=== PATIENT | female | born 1965 | race Caucasian/White ===

== ENCOUNTER 2019-01-27 07:03 | Emergency (ER) | payer BC ==
[2019-01-27 07:13] VITALS: BP 149/73
--- NOTE | 2019-01-27 07:21 | UC ---
Eye Complaint HPI - HPI Summary HPI Summary: 53-year-old woman comes in with a chief complaint of upper eyelid swelling on the right side. Patient woke up this morning with it. The medial aspect of the upper eyelid. It's irritating when she blinks her eyes it's less irritating when she doesn't. No crusting. No known trauma. Does not wear contacts. - History of Current Complaint Chief Complaint: UCEye Stated Complaint: RT EYE CONCERN Time Seen by Provider: 01/27/19 07:15 Pain Intensity: 4 - Allergies/Home Medications Allergies/Adverse Reactions: Allergies Allergy/AdvReac Type Severity Reaction Status Date / Time Penicillins Allergy Anaphylatic Verified 01/27/19 07:10 Shock Sulfa (Sulfonamide Allergy Rash Verified 01/27/19 07:10 Antibiotics) Home Medications: Home Medications Pantoprazole TAB * [Protonix TAB*] 40 mg PO DAILY 01/27/19 [History Confirmed ] Timolol 0.25% OPHTH.SOLN* [Timoptic Ophth.soln 0.25%] 1 drop BOTH EYES DAILY 01/10 [History Confirmed 01/27/19] PMH/Surg Hx/FS Hx/Imm Hx Previously Healthy: Yes GI/ History: Gastroesophageal Reflux - Surgical History Surgical History: Yes Surgery Procedure, Year, and Place: b/l bunionectomy, b/l breast reduction - Family History Known Family History: Positive: Non-Contributory - Social History Alcohol Use: None Substance Use Type: None Smoking Status (MU): Former Smoker When Did the Patient Quit Smoking/Using Tobacco: ~1999 Review of Systems All Other Systems Reviewed And Are Negative: Yes Constitutional: Positive: Negative Skin: Positive: Negative Eyes: Positive: Other - see hpi ENT: Positive: Negative Respiratory: Positive: Negative Cardiovascular: Positive: Negative Gastrointestinal: Positive: Negative Motor: Positive: Negative Neurovascular: Positive: Negative Musculoskeletal: Positive: Negative Neurological: Positive: Negative Psychological: Positive: Negative Is Patient Immunocompromised?: No Physical Exam Triage Information Reviewed: Yes Appearance: Well-Appearing, No Pain Distress, Well-Nourished Vital Signs: Initial Vital Signs Temp 97.7 F 01/27/19 07:08 Pulse 74 01/27/19 07:08 Resp 16 01/27/19 07:08 BP 149/73 01/27/19 07:08 Pulse Ox 97 01/27/19 07:08 Vital Signs Reviewed: Yes Eyes: Positive: Conjunctiva Clear, Other: - rt medial upper eyelid swollen. no fb seen on exam. perrla/eomi. Negative: Conjunctiva Inflamed, Discharge ENT: Negative: Nasal congestion Neck: Positive: Supple Respiratory: Positive: No respiratory distress Musculoskeletal Exam: Normal Musculoskeletal: Positive: Strength Intact, ROM Intact Neurological Exam: Normal Neurological: Positive: Alert, Muscle Tone Normal Psychological Exam: Normal Psychological: Positive: Age Appropriate Behavior Skin Exam: Normal Eye Complaint Course/Dx - Differential Dx/Diagnosis Provider Diagnosis: Hordeolum of right upper eyelid Discharge - Sign-Out/Discharge Documenting (check all that apply): Patient Departure All imaging exams completed and their final reports reviewed: No Studies - Discharge Plan Condition: Stable Disposition: HOME Prescriptions: Tobramycin 0.3% OPHTH.FREDRICK* 1 drop RIGHT EYE Q4H #1 btl Patient Education Materials: [employer] (ED) Referrals: Erica Swann PA [Primary Care Provider] - Additional Instructions: FOLLOW UP WITH YOUR DOCTOR IF NOT COMPLETELY IMPROVED. GET RECHECKED SOONER IF YOUR CONDITION WORSENS OR ANY QUESTIONS OR CONCERNS. - Billing Disposition and Condition Condition: STABLE Disposition: Home
== END 2019-01-27 07:25 | disposition home or self-care (01) ==
LOC: UCCORT 07:03
DX: H00.011 Hordeolum externum right upper eyelid (principal); K21.9 Gastro-esophageal reflux disease without esophagitis; Z87.891 Personal history of nicotine dependence
CPT/HCPCS: 99212; G0463